=== PATIENT | male | born 1980 | race Caucasian/White ===

== ENCOUNTER 2020-01-10 11:24 | Emergency (ER) | payer OTHER, BC, SELFPAY ==
[2020-01-10 11:29] VITALS: BP 147/91; PULSE 75; RESP 17; TEMP 36.7; O2SAT 99; BMI 29.0
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
[2020-01-10 13:34] VITALS: BP 127/75; PULSE 74; RESP 16; TEMP 36.8; O2SAT 96
== END 2020-01-10 13:35 | disposition home or self-care (01) ==
PROVIDERS: Emergency Provider Nurse Practitioner Family
DX: T14.8XXA Other injury of unspecified body region, initial encounter (principal); V59.40XA Driver of pick-up truck or van injured in collision with unspecified motor vehicles in traffic accident, initial encounter; Y92.411 Interstate highway as the place of occurrence of the external cause
CPT/HCPCS: 71046; 72040; 72100; 73030; 73562; 99281; 99283

== ENCOUNTER 2020-07-11 07:01 | Outpatient (CLI) | payer BC, SELFPAY ==
--- NOTE | 2020-07-11 07:15 | US_ITS ---
WS: [id number] ULTRASOUND ABDOMEN LIMITED CLINICAL INFORMATION: hernia COMPARISON: None. FINDINGS: Ultrasound left lower quadrant. Patient directed area. No evidence of hernia or herniated bowel. No f luid collections. US/US abdomen limited [id number] IMPRESSION: No evidence of hernia left lower quadrant.
--- NOTE | 2020-07-11 07:15 | US_ITS ---
WS: [id number] SCROTAL ULTRASOUND EXAMINATION CLINICAL INFORMATION: scrotal mass (L) COMPARISON: None. FINDINGS: TESTES Normal in size and echotexture, without focal lesion. Color Doppler: Normal color Doppler flow pattern. Right testes size: 4.5 cm x 3.3 cm x 2.4 cm. Left testes size: 4.6 cm x 3.0 cm x 2.4 cm. EPIDIDYMIDES Normal in size and echotexture. Small left spermatocele. Color Doppler: Normal color Doppler flow pattern. Right epididymis size: 1.0 cm x 1.1 cm x 1.1 cm. Left epididymitis size: 1.0 cm x 1.8 cm x 0.8 cm. HYDROCELE None. VARICOCELE Right varicocele measuring 2.9 x 1.1 cm OTHER FINDINGS None. US/US scrotum [id number] IMPRESSION: 1. Right varicocele measuring 2.9 x 1.1 cm 2. Left spermatocele measuring 3.9 x 2.7 x 3.4 mm 3. Testicles are otherwise normal in appearance
== END 2020-07-11 07:02 | disposition home or self-care (01) ==
LOC: RAD 07:03
PROVIDERS: Visit Provider Nurse Practitioner Family
DX: K46.9 Unspecified abdominal hernia without obstruction or gangrene (principal); N50.89 Other specified disorders of the male genital organs; I86.1 Scrotal varices; N43.40 Spermatocele of epididymis, unspecified
CPT/HCPCS: 76705; 76870

== ENCOUNTER → 2020-08-18 09:49 | Outpatient (BNVA) | payer BC, SELFPAY | PROVIDERS: PCP Nurse Practitioner Family; Visit Provider Urology | DX: N50.812 Left testicular pain (principal); R10.32 Left lower quadrant pain; G89.29 Other chronic pain; K46.9 Unspecified abdominal hernia without obstruction or gangrene | CPT/HCPCS: 81001 ==

== ENCOUNTER → 2020-09-04 17:16 | Outpatient (BNVA) | payer BC, SELFPAY | PROVIDERS: PCP Nurse Practitioner Family; Visit Provider Nurse Practitioner Family | DX: Z20.828 Contact with and (suspected) exposure to other viral communicable diseases (principal); J02.9 Acute pharyngitis, unspecified; J30.9 Allergic rhinitis, unspecified | CPT/HCPCS: 87071; 87635; 87880 ==

== ENCOUNTER → 2020-09-29 10:24 | Outpatient (BNVA) | payer BC, SELFPAY | PROVIDERS: PCP Nurse Practitioner Family; Visit Provider Surgery | DX: Z11.59 Encounter for screening for other viral diseases (principal); K40.20 Bilateral inguinal hernia, without obstruction or gangrene, not specified as recurrent | CPT/HCPCS: 87635 ==

== ENCOUNTER 2020-10-04 05:49 | Day surgery (SDC) | payer BC, SELFPAY ==
[2020-10-03 16:21] VITALS: BMI 29.2
[2020-10-04] VITALS (10 sets, daily range): BP systolic 101–130; BP diastolic 69–84; PULSE 54–84; RESP 16–24; TEMP 36.3–36.9; O2SAT 94–100
[2020-10-04] MEDS: sodium chloride 0.9% 1,000 ML 30 ML IV (06:11)
--- NOTE | 2020-10-04 06:24 | P.ANESASSM_ITS ---
Pre-Anesthetic Assessment Pre-Anesthetic Assessment: Height/Weight: Height 1.8 m Weight 95.254 kg Temp Pulse Resp BP Pulse Ox 97.6 F 62 16 130/81 98 10/04/20 06:00 10/04/20 06:00 10/04/20 06:00 10/04/20 06:00 10/04/20 06:00 Preop Diagnosis: Bilateral inguinal hernia Proposed Procedure: Operation Date: 10/04/20 07:00 Proposed Procedures p Laparoscopic possible open Incisional Hernia Repair w/ Mesh [id number] k40.20(Bilateral) - Rigo Cody MD Familial anesthetic complications: None Was Beta Tamika taken within 24 hours: N/A Last intake: Intake Last Liquid Date 10/03/20 Last Liquid Time 21:30 Last Solid Date 10/03/20 Last Solid Time 21:30 Social: Social History: No alcohol and No tobacco Exam: Pre-Anes Outpt Exam: alert, oriented x 3, clear to auscultation bilaterally and regular rate & rhythm Airway: Cervical ROM: WNL MP: 3 Dentition: Other (missing) Pulmonary: Comments: COVID 19 last month CV/HEM: Comments: Hx chest pains some years back, saw cardiology and was told he was fine, but he had scarring on his heart. Unable to offer more details. His stress test in 2019 states decreased perfusion may be from scarring or attenuation artifact. Stress tests normal. The patient states he runs on elliptical for 20 minutes and lifts light weights for 30 minutes a day. Anesthetic Plan: ASA status: 2 Anesthesia: General Risk of > 500 ml blood loss (7ml/kg in children): No Meds/Allergies Current Medications: Current Medications Generic Name Dose Route Start Last Admin Trade Name Freq PRN Reason Stop Dose Admin Sodium Chloride 1,000 mls @ 30 ml s/hr 10/04/20 06:00 10/04/20 06:11 Sodium Chloride 0.9% IV 10/05/20 05:59 30 mls/hr .Q24H YOLANDA Administration PFSH Anesthesia PFSH: Medical History Spermatocele Surgical History History of appendectomy History of lateral meniscus repair of left knee Family History Denies family history of Anesthesia complication Bleeding disorder Social History Smoking and tobacco status: never smoked Second hand smoke exposure: No Alcohol intake: never Lives independently: Yes Household members: spouse and children Marital status: service: No Current occupational status: employed Current occupation: [employer] History of recent travel: No Current gender identity: Male Data Anesthesia Cardiac Studies: No Data to Display
--- NOTE | 2020-10-04 06:55 | W.PM.OPSUD ---
Surgery/Procedure H&P Update DATE OF PROCEDURE: October 04, 2020 DATE H&P PERFORMED: 09/19/20 H&P UPDATE INFORMATION: I have reviewed H&P completed within last 30 days, I have examined patient prior to procedure and No changes to prior documentation PREOP DIAGNOSIS: Bilateral inguinal hernia PLANNED PROCEDURE: Operation Date: 10/04/20 07:00 Proposed Procedures p Laparoscopic possible open Incisional Hernia Repair w/ Mesh [id number] k40.20(Bilateral) - Rigo Cody MD
--- NOTE | 2020-10-04 08:52 | PM.OP ---
Operative Report Date of procedure: October 04, 2020 Pre-op Diagnosis: Bilateral inguinal hernia Post-op Diagnosis: Left indirect inguinal hernia with small lipoma of the spermatic cord Right indirect inguinal hernia with lipoma of the spermatic cord Procedure Done: Laparoscopic extraperitoneal bilateral inguinal hernia repair with Surgimax 3D Mesh Pathology: none sent Surgeon: Rigo Cody Anesthesia: General Condition: stable Disposition: PACU Procedure: The patient was taken to the operating room. After IV antibiotic was administered, the abdomen was prepped and draped in a sterile manner. Using a 15 blade, a 1.0 cm transverse incision was made infraumbilically on the right side. Subcutaneous tissue was divided using electrocautery and the anterior rectus sheath divided using an 11 blade. The rectus muscle was retracted laterally and the extraperitoneal space identified. A 11 mm port was placed and 12 mm of pneumoperitoneum was created. A 10 mm 30? scope was introduced and the retrorectus space was opened using the camera up to the pubic symphysis and 5 mm ports were placed in the midline, one 2-fingerbreadths above the pubic symphysis and the other midway between these two ports under direct visualization. Blunt dissection was carried out to open up the tissue in the midline and to the pubic symphysis, which was identified. The dissection was then carried laterally on the right side where the iliopubic tract was identified. There was no femoral, obturator or direct hernia noted. The inferior epigastric artery was identified and dissection was carried posterior to it and laterally, the space was opened up to the level of the umbilicus superior to the anterior superior iliac spine. I then proceeded to dissect out the spermatic cord and the indirect hernial sac with a small lipoma was reduced . Blunt dissection was carried out to open up the tissue in the midline and to the pubic symphysis, which was identified. The dissection was then carried laterally on the right side where the iliopubic tract was identified. There was no femoral, obturator or direct hernia noted. The inferior epigastric artery was identified and dissection was carried posterior to it and laterally, the space was opened up to the level of the umbilicus superior to the anterior superior iliac spine. I then proceeded to dissect out the spermatic cord and the indirect hernial sac with a small lipoma was reduced . 16 x 11cm Surgimax 3D mesh was rolled and introduced through the 10 mm port and then rolled laterally and apposed well against the abdominal wall to cover the myopectineal orifice completely on the left side and this was repeated on the right side. 10 Cc of 0.5% Marcaine was infiltrated into the preperitoneal space. The extraperitoneal space was desufflated under direct visualization to ensure no slippage of hernial sac under the mesh. All ports were removed, the anterior rectus fascia at the infraumbilical port closed using figure of eight 0 Vicryl sutures, subcutaneous tissue approximated using 3-0 Vicryl sutures and skin at all three port sites were closed using running subcuticular 4-0 Monocryl sutures and Dermabond. 10 mL of 0.5% Marcaine was infiltrated at the port sites. The patient was stable throughout the procedure.
[2020-10-04] MEDS: ondansetron 2 mg/ML SDV 2 mL 4 MG IVP ×2 (09:11→09:39)
--- NOTE | 2020-10-04 09:32 | SUR.PHASEI ---
1728 PT STATES NAUSEA IS BETTER, C/O OF (MY STOMACH VIVAR A LITTLE BIT) PT OK WITH TAKING SIPS OF SPRITE AND PO PAIN MED, PT WANTS TO SEE , PT TO OPS AWAKE ALERT , TALKATIVE, AT BEDSIDE. VSS. HANDOFF AT BEDSIDE
[2020-10-04] MEDS: HYDROcodone-acetaminophen 5-325 mg Tablet 1 TAB PO (10:30)
--- NOTE | 2020-10-04 21:05 | ANE.PACU2 ---
Inpatient post-anesthesia follow up: Airway intact: Yes Vital signs: Temperature 98.1 F Pulse Rate 60 Respiratory Rate 18 Blood Pressure 103/70 Pulse Oximetry 95 Oxygen Delivery Me thod Room Air Oxygen Flow Rate 8 Fraction of Inspir ed Oxygen Hydration adequate: Yes Nausea and vomiting: No Pain level: 1 Mental status: Baseline
== END 2020-10-04 11:22 | disposition home or self-care (01) ==
PROVIDERS: PCP Nurse Practitioner Family; Visit Provider Surgery
PROC: (CPT 49650; principal; 2020-10-04 07:00)
DX: K40.20 Bilateral inguinal hernia, without obstruction or gangrene, not specified as recurrent (principal); D17.6 Benign lipomatous neoplasm of spermatic cord
CPT/HCPCS: 49650; 12345; 96374; C1781; J0131; J0690; J1100; J1885; J2250; J2405; J2704; J2765; J3475; J3490; J7030

== ENCOUNTER → 2021-02-02 15:20 | Outpatient (BNVA) | payer BC, SELFPAY | PROVIDERS: PCP Nurse Practitioner Family; Visit Provider Nurse Practitioner Family | DX: M25.552 Pain in left hip (principal); Z68.28 Body mass index [BMI] 28.0-28.9, adult; M16.12 Unilateral primary osteoarthritis, left hip | CPT/HCPCS: 73502 ==

== ENCOUNTER → 2021-02-06 14:13 | Outpatient (BNVA) | payer BC, SELFPAY | PROVIDERS: PCP Nurse Practitioner Family; Visit Provider Nurse Practitioner Family | DX: M54.42 Lumbago with sciatica, left side (principal) | CPT/HCPCS: 72100 ==

== ENCOUNTER 2021-03-13 14:16 | Outpatient (CLI) | payer BC, SELFPAY ==
--- NOTE | 2021-03-13 14:30 | MR_ITS ---
WS: [id number] Exam: MR lumbar spine wo con* [id number] Date/Time of Exam: 03/13/2021 2:21 PM Reason For Exam: M54.42 - Lumbago with sciatica, left side The lumbar spine evaluated in the sagittal and axial planes with multiple imaging sequences. There is posterior left paracentral disc herniation at L4-5. There appears to be impingement upon the left nerve root in the subarticular space at this level. There also appears to be cephalad migration of the extruded disc material along the posterior left margin of the L4 vertebra. There were no othe r levels of significant disc bulge or herniation. No other levels of spinal canal stenosis were demon strated. No foraminal stenosis is seen. The conus medullaris and cauda equina hand at normal level. P araspinal and retroperitoneal soft tissue structures appear normal. Facet DJD at all levels. Recommendations: It is recommended that the above-described disc levels be correlated with plain film s before any surgical planning. There may be sacralization of L5 MR/MR lumbar spine wo con* [id number] IMPRESSION: 1. 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 There appears to be impi ngement upon the left nerve root in the subarticular space. There also appears to be cephalad migration of extruded disc material along the posterior left mar gin of the L4 vertebra. 2. There were no other levels of significant spinal canal stenosis or disc prot rusion. No foraminal stenosis is seen.
== END 2021-03-13 14:17 | disposition home or self-care (01) ==
PROVIDERS: PCP Nurse Practitioner Family; Visit Provider Orthopaedic Surgery
DX: M54.42 Lumbago with sciatica, left side (principal); M51.26 Other intervertebral disc displacement, lumbar region
CPT/HCPCS: 72148

== ENCOUNTER → 2021-10-30 13:21 | Outpatient (BNVA) | payer BC, OTHER, SELFPAY | PROVIDERS: PCP Nurse Practitioner Family; Visit Provider Nurse Practitioner Family | DX: I10 Essential (primary) hypertension (principal); K21.9 Gastro-esophageal reflux disease without esophagitis; Z68.28 Body mass index [BMI] 28.0-28.9, adult | CPT/HCPCS: 80053; 80061; 82607; 83735; 84443; 85025 ==

== ENCOUNTER → 2021-11-28 11:55 | Outpatient (BNVA) | payer OTHER, SELFPAY | PROVIDERS: PCP Nurse Practitioner Family; Visit Provider Nurse Practitioner Family | DX: R74.8 Abnormal levels of other serum enzymes (principal); E78.1 Pure hyperglyceridemia | CPT/HCPCS: 80076; 84478; 86705; 86706; 86709; 86803; 87340 ==

== ENCOUNTER → 2022-01-18 14:38 | Outpatient (BNVA) | payer OTHER, SELFPAY | PROVIDERS: PCP Nurse Practitioner Family; Visit Provider Nurse Practitioner Family | DX: N50.819 Testicular pain, unspecified (principal) | CPT/HCPCS: 81000 ==